=== PATIENT | male | born 1970 | race Caucasian/White ===

== ENCOUNTER 2018-07-31 20:51 | Emergency (ER) | payer OTHER ==
[~2018-07-31] VITALS: Ht 203.2 cm; Wt 172.4 kg
[2018-07-31] MEDS ORDERED: MOBIC15 MG PO (21:27)
[2018-07-31 21:58] VITALS: BP 143/79
== END 2018-07-31 21:59 | disposition home or self-care (01) ==
LOC: M.ERS 20:51
DX: M79.641 Pain in right hand (principal); M79.642 Pain in left hand